=== PATIENT | female | born 1965 | race Caucasian/White ===

== ENCOUNTER → 2021-10-04 | Outpatient (CLI) | payer OTHER ==
[~2021-10-04] MED LIST: APIDRA SOL100 UNIT/1 SQ; BASAGLAR K100 UNIT/1 SQ; CLARITIN10 MG PO; FLEXERIL 10 MG10 MG PO; GLUCOPHAGE XR500 MG PO; INDERAL TAB 2020 MG PO; LAMICTAL100 MG PO; LIPITOR TAB 2020 MG PO; LISINOPRIL40 MG PO; LORTAB 7.5-3251 EACH PO; MAGOX 400400 MG PO; NORVASC 5 MG TAB5 MG PO; PROTONIX40 MG PO; SYMBICORT 160-1 INHA INH; TRICOR145 MG PO
== END ==
LOC: HEART CORB 09-30 08:30
DX: I10 Essential (primary) hypertension (principal); R60.0 Localized edema; R06.02 Shortness of breath; I51.7 Cardiomegaly
CPT/HCPCS: 93306